=== PATIENT | male | born 1975 | race Two or more races ===

== ENCOUNTER 2022-02-02 11:14 | Emergency (ER) | payer OTHER ==
[~2022-02-02] VITALS: Ht 177.8 cm; Wt 88.5 kg
--- NOTE | 2022-02-02 11:20 | NUR ---
A, A AND O X4 IN ED VIA RESCUE WITH REPORT OF TREMORS AFTER TAKING ZYPREXA. ALSO TREATED SELF WITH ATIVAN 0.5 MG 1/2 TAB. REPORTS HX OF DEPRESSION AND BENZO DEPENDENCY AND REQUESTING 1 MG ATIVAN INSTEAD OF [address] PEREZ.
[2022-02-02] MEDS ORDERED: IV NS 0.9% 1,000 ML IV ONE (11:30)
[2022-02-02] MEDS ORDERED: LORAZEPAM INJ 2 MG/ML VIAL IV ONE (11:30)
[2022-02-02] MEDS ORDERED: LORAZEPAM INJ 2 MG/ML VIAL ONE (11:38)
[2022-02-02 11:57] LABS: BASOPHILS % (AUTO) 0.8 % (0.0-2.0); EOSINOPHILS % (AUTO) 6.7 % (0.0-6.0); HEMATOCRIT 39 % (39-51); HEMOGLOBIN 12.4 g/dL (13.5-17.5); LYMPHOCYTES # (AUTO) 1.7 K/uL (0.8-4.8); LYMPHOCYTES % (AUTO) 38.4 % (20.0-44.0); MEAN CORPUSCULAR HGB CONC 32 g/dl (31.0-36.0); MEAN CORPUSCULAR VOLUME 76 fL (80-96); MONOCYTES # (AUTO) 0.4 K/uL (0.1-1.30); MONOCYTES % (AUTO) 8.2 % (2.0-12.0); NEUTROPHILS # (AUTO) 2.1 K/uL (1.8-8.9); NEUTROPHILS % (AUTO) 45.9 % (43.0-81.0); PLATELET COUNT (AUTO) 254 K/uL (150-450); RED BLOOD CELL COUNT(AUTO) 5.12 MIL/uL (4.5-6.0); WHITE BLOOD COUNT (AUTO) 4.5 K/uL (4.3-11.0)
[2022-02-02 12:05] LABS: CALCIUM, SERUM 8.8 mg/dL (8.5-10.1); POTASSIUM 3.8 mmol/L (3.5-5.1)
--- NOTE | 2022-02-02 12:30 | NUR ---
VERBALIZED RELIEF AND STATED READY TO GO HOME. NO TREMORS NOTED. VOIDING WITHOUT DIFF. CLEAR YELLOW URINE.VSS.
[2022-02-02] MEDS ORDERED: CHLO25CA22 PO (13:38)
--- NOTE | 2022-02-02 13:55 | NUR ---
DISCUSSED AND GIVE PATIENT DISCHARGE INSTRUCTIONS AND RX, MAP DISCONT WITH CATH INTACT.LEFT HOSP WITHOUT DISTRESS OR REPORT OF TREMORS.
[2022-02-02 14:23] VITALS: BP 113/74
== END 2022-02-02 13:55 | disposition home or self-care (01) ==
LOC: ER 11:27
DX: F13.239 Sedative, hypnotic or anxiolytic dependence with withdrawal, unspecified (principal); F41.9 Anxiety disorder, unspecified; F17.200 Nicotine dependence, unspecified, uncomplicated; Z60.2 Problems related to living alone; Z88.0 Allergy status to penicillin
CPT/HCPCS: 99283; 96374; 96361; 85025; 80048; 82550; 36415; J2060; J7030

== ENCOUNTER 2022-07-07 23:57 | Emergency (ER) | payer OTHER ==
[~2022-07-07] VITALS: Ht 177.8 cm; Wt 88.5 kg
[~2022-07-07 23:57] MED LIST: CHLO25CA22 PO
[2022-07-08 00:20] VITALS: BP 138/83
--- NOTE | 2022-07-08 00:49 | NUR ---
Patient discharged to home in stable condition. Written and verbal after care instructions given. Patient verbalizes understanding of instruction. Pt ambulatory with a steady gait
== END 2022-07-08 00:49 | disposition home or self-care (01) ==
LOC: ER 07-08 00:01
DX: F41.0 Panic disorder [episodic paroxysmal anxiety] (principal); F17.200 Nicotine dependence, unspecified, uncomplicated; Z79.899 Other long term (current) drug therapy; Z88.0 Allergy status to penicillin